=== PATIENT | female | born 1985 | race Two or more races ===

== ENCOUNTER 2022-09-11 14:53 | Emergency (ER) | payer OTHER ==
[2022-09-11 15:05] VITALS: BP 109/70; PULSE 71; RESP 17; TEMP 98.1; BMI 22.4
[2022-09-11 16:35] LABS: EPI CELLS 8 /uL (0-25.1); HCG,QUALITATIVE URINE Positive; HYALINE CASTS 0 /uL (0-3.1); URINE APPEARANCE CLEAR; URINE BACTERIA 56 /uL (0-1359); URINE BILIRUBIN NEGATIVE (NEGATIVE); URINE COLOR YELLOW; URINE GLUCOSE (UA) NEGATIVE (NEGATIVE); URINE KETONE TRACE (NEGATIVE); URINE LEUK ESTERASE NEGATIVE (NEGATIVE); URINE NITRITE NEGATIVE (NEGATIVE); URINE PROTEIN NEGATIVE (NEGATIVE); URINE RBC 171 /uL (0-23.9); URINE WBC 7 /uL (0-25.8)
[2022-09-11 17:00] LABS: BASO % 0.7 % (0-2.0); EOS % 1.4 % (0-4.5); HEMATOCRIT 38.8 % (32.4-45.2); HEMOGLOBIN 13.3 GM/dL (10.7-15.3); LYMPH % 36.1 % (8-40); MCHC 34.3 g/dl (32.0-36.0); MEAN CELL VOLUME 87.6 fl (80-96); MEAN PLT VOLUME 8.9 fl (7.5-11.1); MONO % 6.8 % (3.8-10.2); PLATELET COUNT 233 10^3/uL (134-434); RBC 4.43 M/mm3 (3.60-5.2); WHITE BLOOD COUNT 10.1 K/mm3 (4.0-10.0)
[2022-09-11 17:16] LABS: ALBUMIN 3.8 g/dl (3.4-5.0); BLOOD UREA NITROGEN 12.6 mg/dL (7-18); CALCIUM 8.6 mg/dL (8.5-10.1)
[2022-09-11 17:20] LABS: CREATININE 0.7 mg/dL (0.55-1.3)
[2022-09-11 17:22] LABS: BILIRUBIN,TOTAL 0.3 mg/dL (0.2-1); TOT PROT 7.1 g/dl (6.4-8.2)
== END 2022-09-11 19:56 | disposition home or self-care (01) ==
LOC: JERFT 14:53
DX: O20.8 Other hemorrhage in early pregnancy (principal)
CPT/HCPCS: 36415; 76817-TC; 80053; 81003; 84702; 84703; 85025; 86850; 86900; 86901; 87086; 99284-25